=== PATIENT | male | born 2000 | race Caucasian/White ===

== ENCOUNTER 2022-03-01 06:33 | Inpatient (IN) | payer OTHER ==
[~2022-03-01] VITALS: Ht 185.4 cm; Wt 83.0 kg
--- NOTE | 2022-03-01 06:43 | NUR ---
PATIENT [id number] FROM HOME C/O AMS THIS AM AFTER TAKING MOOD MEDS LAST NIGHT. PATIENT IS A/O TO PAIN. NO SOB NOTED. PATIENT TO ER BED 8, PATIENT CONNECTED TO CUSTOMER RELATIONSHIP SPECIALIST AND POX. WILL CONTINUE TO MONITOR.
[2022-03-01] MEDS ORDERED: NALOXONE PREFILLED SYRINGE 2 MG/2 ML SYRINGE ONE (06:51)
[2022-03-01] MEDS ORDERED: NALOXONE HCL 0.4 MG/ML AMPUL IV ONE (07:00)
[2022-03-01] MEDS ORDERED: IV NS 0.9% 1,000 ML BAG IV ONE (07:00)
[2022-03-01 07:04] LABS: BASOPHILS % (AUTO) 0.1 % (0.0-2.0); HEMATOCRIT 46 % (39-51); HEMOGLOBIN 15.1 g/dL (13.5-17.5); LYMPHOCYTES # (AUTO) 1.5 K/uL (0.8-4.8); LYMPHOCYTES % (AUTO) 9.8 % (20.0-44.0); MEAN CORPUSCULAR HGB CONC 33 g/dl (31.0-36.0); MEAN CORPUSCULAR VOLUME 94 fL (80-96); MONOCYTES # (AUTO) 0.5 K/uL (0.1-1.30); MONOCYTES % (AUTO) 3.1 % (2.0-12.0); NEUTROPHILS # (AUTO) 13.7 K/uL (1.8-8.9); PLATELET COUNT (AUTO) 422 K/uL (150-450); RED BLOOD CELL COUNT(AUTO) 4.91 MIL/uL (4.5-6.0); WHITE BLOOD COUNT (AUTO) 15.7 K/uL (4.3-11.0)
[2022-03-01 07:14] LABS: BILIRUBIN,URINE NEGATIVE (NEGATIVE); COLOR,URINE YELLOW (YELLOW); LEUKOCYTE ESTERASE ,URINE NEGATIVE (NEGATIVE); NITRITE, URINE NEGATIVE (NEGATIVE); PROTEIN,URINE NEGATIVE (NEGATIVE); UGLUCOSE NEGATIVE (NEGATIVE); UROBILINOGEN,URINE 0.2 EU/dL (0.2)
--- NOTE | 2022-03-01 07:18 | NUR ---
BLOOD WORK COLLETED
--- NOTE | 2022-03-01 07:18 | NUR ---
COVID SWAB COLLECTED
[2022-03-01 07:27] LABS: ALANINE AMINOTRANSFERASE 21 U/L (12-78); ALBUMIN 4.4 g/dL (3.4-5.0); ALCOHOL, BLOOD < 3 mg/dL (0-0); ALKALINE PHOSPHATASE 63 U/L (46-116); ASPARTATE AMINOTRANSFERASE 11 U/L (15-37); BILIRUBIN,DIRECT 0.1 mg/dL (0.0-0.2); BILIRUBIN,TOTAL 0.4 mg/dL (0.2-1.0); CARBON DIOXIDE 26 mmol/L (21-32); CHLORIDE 103 mmol/L (98-107); GLUCOSE 203 mg/dL (74-106); POTASSIUM 4.3 mmol/L (3.5-5.1); SODIUM SERUM 139 mmol/L (136-145); TOTAL PROTEIN, SERUM 7.8 g/dL (6.4-8.2); UREA NITROGEN, BLOOD 21 mg/dL (7-18)
--- NOTE | 2022-03-01 07:31 | NUR ---
taken to ct
[2022-03-01 07:40] LABS: ACETAMINOPHEN < 10 ug/ml (10-30)
--- NOTE | 2022-03-01 07:45 | NUR ---
PT RETURNED FROM RADIOLOGY; CXR TAKEN BY WELDER REPAIR AT BEDSIDE
--- NOTE | 2022-03-01 07:53 | NUR ---
covid and influenza swab taken sent to lab
--- NOTE | 2022-03-01 07:56 | NUR ---
MOVE SHEET SUBMITTED
--- NOTE | 2022-03-01 08:41 | NUR ---
[facility] PAGED
--- NOTE | 2022-03-01 09:33 | NUR ---
[facility] PAGED
[2022-03-01] MEDS ORDERED: TRAZ-252 PO (10:07)
[2022-03-01] MEDS ORDERED: FLUV25TA3 PO (10:07)
[2022-03-01] MEDS ORDERED: DEXM25CP2 PO (10:07)
[2022-03-01] MEDS ORDERED: MINO2.5T PO (10:07)
[2022-03-01] MEDS ORDERED: PROP40TA7 PO (10:07)
[2022-03-01] MEDS ORDERED: GABA300C PO (10:07)
[2022-03-01] MEDS ORDERED: CHLO25TA23 PO (10:07)
[2022-03-01] MEDS ORDERED: LURA40TA PO (10:07)
[2022-03-01] MEDS ORDERED: LAMO25TA10 PO (10:07)
[2022-03-01] MEDS ORDERED: ALBU8.5H8 IH (10:07)
[2022-03-01] MEDS ORDERED: DEXM10TA5 PO (10:07)
[2022-03-01] MEDS ORDERED: HYDR-500 PO (10:07)
[2022-03-01] MEDS ORDERED: CHLO50TA24 PO (10:07)
--- NOTE | 2022-03-01 10:07 | NUR ---
[facility] PAGED
--- NOTE | 2022-03-01 10:08 | NUR ---
DR VICTORIA SPEAKING W/ DR PARSONS
[2022-03-01] MEDS ORDERED: ONDANSETRON HCL/PF 4 MG/2 ML VIAL IVP PRN (13:30)
[2022-03-01] MEDS ORDERED: IV D5/0.45 NACL 1,000 ML IV PRN (13:30)
--- NOTE | 2022-03-01 14:49 | NUR ---
Pt nodding to simple "Yes/No" question, but still sleepy; appears less agitated. VSS remains stable. No distress noted
--- NOTE | 2022-03-01 15:27 | NUR ---
Pt more awake. able to make needs known. ambulated to bathroom stating, "I need to pee". Pt Continent of stool amd bladder. Father and Mother remains @ bedside. Pt pulled out IV. Bleeding controlled post removal
--- NOTE | 2022-03-01 18:08 | NUR ---
Pt presented with projectile vomiting, brownish gastric contents noted. Pt remains alert and able to protect airway. Cont to monitor.
--- NOTE | 2022-03-01 19:53 | NUR ---
REPORT MELISSA TO BRIGIDA AGUILAR
--- NOTE | 2022-03-01 20:30 | NUR ---
RN RECEIVING NOTE FROM ER PATIENT ARRIVED TO UNIT VIA LINDARFRANK FROM ER STABLE AND WITH BOTH PARENTS PRESENT. PATIENT IS A/OX3. NO S/S OF DISTRESS, BREATHING WITHOUT DIFFICULTY ON ROOM AIR. R-HAND #22 INTACT AND PATENT. TELE READS ST 130 W/ A PATIENT HX OF RUNNING TACHYCARDIC (WILL MONITOR CLOSELY). VS WNL. PATIENT WAS ORIENTED TO UNIT. PATIENT GIVEN CALL LARSEN AND INSTRUCTED ON ITS USE. BELONGINGS ACCOUNTED FOR, LOGGED INTO SHEET, AND PLACED IN CHART. TELE MONITOR APPLIED TO PATIENT. SAFETY MEASURES IN PLACE: BED LOCKED AND AT LOWEST POSITION, RAILS UP X2, CALL LARSEN WITHIN REACH. WILL CONTINUE TO MONITOR PATIENT. Addendum: 03/01/22 at 2242 by LAUREN HAAS RN PATIENT'S PARENTS WANT THE FOLLOWING FOR CONTACT INFORMATION JENNIFER BECKIE (FATHER) [phone] NASRIN Jha (PCP/[facility]) [phone]
--- NOTE | 2022-03-01 20:35 | NUR ---
PATIENT TRANSFERRED ,VSS.
[2022-03-01 23:12] VITALS: BP 131/79
[2022-03-02] VITALS: BP 126/70
[2022-03-02 04:00] VITALS: BP 124/78
[2022-03-02 06:08] LABS: BASOPHILS % (AUTO) 0.1 % (0.0-2.0); EOSINOPHILS % (AUTO) 0.2 % (0.0-6.0); HEMATOCRIT 40 % (39-51); HEMOGLOBIN 13.5 g/dL (13.5-17.5); LYMPHOCYTES # (AUTO) 1.7 K/uL (0.8-4.8); LYMPHOCYTES % (AUTO) 12.5 % (20.0-44.0); MEAN CORPUSCULAR HGB CONC 34 g/dl (31.0-36.0); MEAN CORPUSCULAR VOLUME 93 fL (80-96); MONOCYTES % (AUTO) 7.1 % (2.0-12.0); NEUTROPHILS # (AUTO) 10.8 K/uL (1.8-8.9); NEUTROPHILS % (AUTO) 80.1 % (43.0-81.0); PLATELET COUNT (AUTO) 304 K/uL (150-450); RED BLOOD CELL COUNT(AUTO) 4.29 MIL/uL (4.5-6.0); WHITE BLOOD COUNT (AUTO) 13.5 K/uL (4.3-11.0)
[2022-03-02 06:30] LABS: CALCIUM, SERUM 8.9 mg/dL (8.5-10.1); CREATININE 0.8 mg/dL (0.6-1.3); PHOSPHORUS 3.3 mg/dL (2.5-4.9); POTASSIUM 3.4 mmol/L (3.5-5.1)
--- NOTE | 2022-03-02 06:48 | NUR ---
RN OPENING NOTE PATIENT AWAKE IN BED. A/OX3. NO S/S OF DISTRESS, BREATHING WITHOUT DIFFICULTY ON ROOM AIR. R-HAND #22 INTACT AND PATENT W/ D5-1/2NS 75ML/HR. TELE READS SR 98. SAFETY MEASURES IN PLACE: BED LOCKED AND AT LOWEST POSITION, RAILS UP X2, CALL LARSEN WITHIN REACH. WILL CONTINUE TO MONITOR PATIENT. Addendum: 03/02/22 at 0654 by LAUREN HAAS RN CORRECTION: CLOSING NOTE [...] WILL ENDORSE TO NEXT SHIFT FOR JASWANT.
--- NOTE | 2022-03-02 07:18 | NUR ---
TRAY SERVICE WORKER OPENING NOTES RECEIVED PATIENT AWAKE IN BED IN NO ACUTE SIGNS OF DISTRESS. A/OX3. ABLE TO MAKE NEEDS KNOWN, DENIES PAIN OR ANY SIGNS OF DISCOMFORTS AT THIS TIME. ON ROOM AIR, TOLERATING WELL, BREATHING EVEN AND UNLABORED. TELE-MONITOR SHOWS NSR WITH HR OF 91 @ THIS TIME, NO C/O CARDIAC DISTRESS VOICED. IV ACCESS ON R-HAND #22G INTACT WITH D5-1/2NS @75ML/HR INFUSING WELL, NO S/S INFILTRATION NOTED. ALL SAFETY MEASURES IN PLACE: BED LOCKED AND AT LOWEST POSITION, RAILS UP X2 AND PADDED, BED ALARM ON AND CALL LARSEN WITHIN REACH. WILL CONTINUE TO MONITOR PATIENT.
[2022-03-02] MEDS ORDERED: PANTOPRAZOLE 40 MG VIAL IV SCH (09:00)
[2022-03-02] MEDS ORDERED: POTASSIUM CHLORIDE 20 MEQ TAB.PRT.SR PO ONE (11:00)
--- NOTE | 2022-03-02 14:20 | NUR ---
RN DISCHARGED NOTES PT IS A/O X4. ABLE TO MAKE NEEDS KNOWN. DR PARSONS CAME AND SPEAK TO PT'S MOM AND PT WITH ORDER TO D/C PT HOME WITH NO CHANGES IN HOME MEDICATIONS ORDERED. ALL BELONGINGS ACCOUNTED FOR AND PT'S MOTHER SIGNED BELONGINGS LIST. IV ACCESS ON RIGHT HAND G#22 REMOVED WITH NO ACTIVE BLEEDING NOTED, DRY PRESSURE DRESSING APPLIED AT SITE. HEALTH TEACHINGS/DISCHARGE INSTRUCTIONS GIVEN TO PT AND HER MOM, BOTH VERBALIZED UNDERSTANDING. EXIT FOLDER HANDED TO PT'S MOM. NAME ARMBAND REMOVED. PT LEFT UNIT @ 1410 AMBULATORY ACCOMPANIED BY ME AND HIS FAMILY. PT DISCHARGED HOME IN STABLE CONDITION. MD AND CHARGE NURSE AWARE OF DISCHARGE.
== END 2022-03-02 14:15 | disposition home or self-care (01) | DRG 948 ==
LOC: ER 06:36 → TRANSITION 17:48 → TELE 19:43
DX: R41.82 Altered mental status, unspecified (principal); F84.0 Autistic disorder; D72.829 Elevated white blood cell count, unspecified; Z20.822 Contact with and (suspected) exposure to COVID-19; J45.909 Unspecified asthma, uncomplicated
CPT/HCPCS: 36415; 70450-TC; 71045-TC; 80048-TC; 80076-TC; 82962-TC; 83605-TC; 83735-TC; 84100-TC; 84484-TC; 85025-TC; 85730-TC; 87040-TC; 87081-TC; C9113; C9803; G0378; G0480; J2310; J3490; J7030